=== PATIENT | female | born 1980 | race Caucasian/White ===

== ENCOUNTER 2016-06-22 10:42 | Emergency (ER) | payer OTHER ==
[2016-06-22 11:40] VITALS: BP 134/82
--- NOTE | 2016-06-22 12:44 | UC ---
Headache HPI - HPI Summary HPI Summary: complaint of headache that started 2 days ago when she woke up in the morning stabbing pain in L side of head and radiates into her forehead feels nauseous, vomited 2-3x day for the last 2 days-drinking minimal fluids- denies diarrhea photophobia denies vision changes -aura unable to take metformin for 2 days taking excedrin migraine without relief-last dose of excedrin was yesterday 1300 hx of migraines in the past- last episode 1 month ago, feels worse than her normal migraine-worst headache she has ever had hasn't checked her blood glucose ct scan approx 1 year ago for visual disturbances/headache - History Of Current Complaint Chief Complaint: UCGI Stated Complaint: HEADACHE NAUSEA Time Seen by Provider: 06/22/16 12:38 Hx Obtained From: Patient Hx Last Menstrual Period: First part of May. Onset/Duration: Sudden Onset, Lasting Days, Still Present Onset Of Symptoms: Still Present Initially Headache Was: "Worst Headache Ever" Timing: Constant Character: Sharp Location of Headache: Frontal, Temporal Aggravating Factor: Position Change, Bright Lights Associated Signs And Symptoms: Positive: Dizziness, Nausea, Vomiting - Allergies/Home Medications Allergies/Adverse Reactions: Allergies Allergy/AdvReac Type Severity Reaction Status Date / Time Adhesive Tape Allergy Rash Verified 06/22/16 11:32 Diphenhydramine Allergy Itching Verified 06/22/16 11:32 [From Benadryl] Erythromycin Allergy Hives Verified 06/22/16 11:32 adhesives Allergy Rash Uncoded 06/22/16 11:32 PMH/Surg Hx/FS Hx/Imm Hx Previously Healthy: Yes Endocrine History Of: Reports: Diabetes Cardiovascular History Of: Denies: Hypertension, Pacemaker/ICD Respiratory History Of: Reports: Asthma GI/ History Of: Denies: Renal Disease - Surgical History Surgical History: Yes Surgery Procedure, Year, and Place: R carpal tunnel - Family History Known Family History: Positive: Cardiac Disease, Hypertension, Diabetes - Social History Alcohol Use: None Substance Use Type: None Smoking Status (MU): Former Smoker Type: Cigarettes Amount Used/How Often: 1 PPD Length of Time of Smoking/Using Tobacco: 21 Years Have You Smoked in the Last Year: Yes When Did the Patient Quit Smoking/Using Tobacco: 2007 - Immunization History Most Recent Influenza Vaccination: April 2015 Review of Systems Constitutional: Negative Skin: Negative Eyes: Photophobia ENT: Negative Respiratory: Negative Cardiovascular: Negative Gastrointestinal: Vomiting Genitourinary: Negative Motor: Negative Neurovascular: Negative Musculoskeletal: Negative Neurological: Headache Psychological: Negative All Other Systems Reviewed And Are Negative: Yes Physical Exam Triage Information Reviewed: Yes Appearance: Well-Nourished, Pain Distress, Obese Vital Signs: Initial Vital Signs Temp 98.7 F 06/22/16 11:34 Pulse 96 06/22/16 11:34 Resp 20 06/22/16 11:34 BP 134/82 06/22/16 11:34 Pulse Ox 99 06/22/16 11:34 Vital Signs Reviewed: Yes Eyes: Positive: Conjunctiva Clear, Other: - PERRL, EOMI ENT: Positive: Pharynx normal, TMs normal. Negative: Nasal congestion Neck: Positive: No Lymphadenopathy, Other: - no c-spine tenderness Respiratory: Positive: Lungs clear, Normal breath sounds, No respiratory distress Cardiovascular: Positive: RRR, No Murmur, Pulses Normal Abdomen Description: Positive: Nontender, Soft Bowel Sounds: Positive: Present Musculoskeletal: Positive: No Edema Neurological: Positive: Alert, Other: - CNll-[id number], negative Romberg Psychological Exam: Normal Skin Exam: Normal Re-Evaluation - Re-Evaluation First Eval Re-Evaluation Time: 13:45 Change: Improved - headache pain has lessened 4/10 at this time Headache Course/Dx - Course Course Of Treatment: exam completed. ct scan negative for acute changes. pt pain level has decreased with toradol and is tolerating fluids after zofran. will rx for zofran so she can stay hydrated and use her regular medications for headache pain. followup with PCP - Differential Dx/Diagnosis Differential Diagnosis/HQI/PQRI: Migraine, Subarachnoid Hemorrhage, Tension Headache Provider Diagnoses: migraine Discharge - Discharge Plan Condition: Stable Disposition: HOME Prescriptions: Ondansetron ODT TAB* [Zofran 4 MG Odt TAB*] 4 mg PO Q6H PRN #12 tab.odt PRN Reason: Nausea Patient Education Materials: Migraine Headache (ED), Acute Headache (ED) Forms: *Work Release Referrals: Malka Lopez MD [Primary Care Provider] - Additional Instructions: Start zofran as directed Increase fluids and rest Take acetaminophen or ibuprofen for pain Please review your discharge instructions. If your symptoms do not improve please call your primary care provider or return to urgent care
[2016-06-22] MEDS ORDERED: Ketorolac INJ* 60 MG/2 ML VIAL IM ONE (13:01)
--- NOTE | 2016-06-22 13:41 | RAD ---
HISTORY: Headache COMPARISONS: MRI dated November 03, 2015 TECHNIQUE: Multiple contiguous axial CT scans were obtained of the head without intravenous contrast. FINDINGS: HEMORRHAGE/INFARCT: There is no hemorrhage or acute infarct. MASSES/SHIFT: There is no mass or shift. EXTRA-AXIAL SPACES: There are no extra-axial fluid collections. SULCI AND VENTRICLES: The sulci and ventricles are normal in size and position for the patient's stated age. CEREBRUM: There is a dilated perivascular space of the left basal ganglia. This is an incidental finding. BRAINSTEM: There are no focal parenchymal abnormalities. CEREBELLUM: There are no focal parenchymal abnormalities. VESSELS: The vessels are grossly normal. PARANASAL SINUSES: The paranasal sinuses are clear. ORBITS: The orbits are unremarkable. BONES AND SOFT TISSUE: No bone or soft tissue abnormalities are noted. OTHER: None IMPRESSION: NO ACUTE INTRACRANIAL PATHOLOGY.
[2016-06-22] MEDS ORDERED: Ondansetron ODT TAB* 4 MG PO ONE (13:49)
== END 2016-06-22 14:33 | disposition home or self-care (01) ==
LOC: UCCORT 10:42
DX: G43.909 Migraine, unspecified, not intractable, without status migrainosus (principal); Z88.1 Allergy status to other antibiotic agents; Z87.891 Personal history of nicotine dependence
CPT/HCPCS: 70450; 96372; 99212; A9270-GY; G0463; J1885

== ENCOUNTER 2016-11-02 20:07 | Emergency (ER) | payer OTHER ==
[2016-11-02 20:21] VITALS: BP 132/67
--- NOTE | 2016-11-02 20:54 | UC ---
Throat Pain/Nasal Shahab HPI - HPI Summary HPI Summary: THREE DAYS OF SORE THROAT FEVER, CONGESTION - History of Current Complaint Chief Complaint: UCRespiratory Stated Complaint: SORE THROAT/CONGESTION/HEADACHE Time Seen by Provider: 11/02/16 20:18 Hx Obtained From: Patient, Family/Title Officer Hx Last Menstrual Period: 10/13/16 Onset/Duration: Gradual Onset, Lasting Days, Still Present Severity: Moderate Cough: Nonproductive Associated Signs & Symptoms: Positive: Hoarseness, Fever - Epiglottits Risk Factors Epiglottis Risk Factors: Negative - Allergies/Home Medications Allergies/Adverse Reactions: Allergies Allergy/AdvReac Type Severity Reaction Status Date / Time Adhesive Tape Allergy Rash Verified 11/02/16 20:20 Diphenhydramine Allergy Itching Verified 11/02/16 20:20 [From Benadryl] Erythromycin Allergy Hives Verified 11/02/16 20:20 adhesives Allergy Rash Uncoded 11/02/16 20:20 Home Medications: Home Medications Canagliflozin (NF) [Invokana (NF)] 300 mg PO DAILY 11/02/16 [History Confirmed 11/02/16] Depression Medicine 450 mg DAILY 11/02/16 [History Confirmed 11/02/16] Loratadine [Claritin 10 MG CAP] 10 mg PO DAILY 11/02/16 [History Confirmed 11/02] PMH/Surg Hx/FS Hx/Imm Hx Previously Healthy: Yes - Surgical History Surgical History: Yes Surgery Procedure, Year, and Place: R carpal tunnel - Family History Known Family History: Positive: Cardiac Disease, Hypertension, Diabetes - Social History Occupation: Employed Full-time Lives: With Family Alcohol Use: None Substance Use Type: None Smoking Status (MU): Former Smoker Type: Cigarettes Amount Used/How Often: 1 PPD Length of Time of Smoking/Using Tobacco: 21 Years Have You Smoked in the Last Year: Yes When Did the Patient Quit Smoking/Using Tobacco: 2007 - Immunization History Most Recent Influenza Vaccination: April 2015 Review of Systems Constitutional: Fever, Fatigue Skin: Negative Eyes: Negative ENT: Sore Throat Respiratory: Cough Cardiovascular: Negative Gastrointestinal: Negative Genitourinary: Negative Motor: Negative Neurovascular: Negative Musculoskeletal: Negative Neurological: Negative Psychological: Negative All Other Systems Reviewed And Are Negative: Yes Physical Exam Triage Information Reviewed: Yes Appearance: No Pain Distress, Well-Nourished, Ill-Appearing, Obese Vital Signs: Initial Vital Signs Temp 99.2 F 11/02/16 20:15 Pulse 111 11/02/16 20:15 Resp 18 11/02/16 20:15 BP 132/67 11/02/16 20:15 Pulse Ox 99 11/02/16 20:15 Vital Signs Reviewed: Yes Eye Exam: Normal ENT: Positive: Hearing grossly normal, Pharyngeal erythema, Nasal congestion, TMs normal Dental Exam: Normal Neck exam: Normal Neck: Positive: Supple, Nontender, No Lymphadenopathy Respiratory Exam: Other - COUGH Respiratory: Positive: Chest non-tender, Lungs clear, Normal breath sounds, No respiratory distress, No accessory muscle use Cardiovascular Exam: Normal Cardiovascular: Positive: RRR, No Murmur, Pulses Normal Abdominal Exam: Normal Musculoskeletal Exam: Normal Musculoskeletal: Positive: Strength Intact Neurological Exam: Normal Psychological Exam: Normal Skin Exam: Normal Throat Pain/Nasal Course/Dx - Differential Dx/Diagnosis Differential Diagnosis/HQI/PQRI: Sinusitis, Tonsillitis, URI Provider Diagnoses: TONSILLITIS Discharge - Discharge Plan Condition: Stable Disposition: HOME Patient Education Materials: Tonsillitis (ED) Forms: *Work Release Referrals: Malka Lopez MD [Primary Care Provider] -
== END 2016-11-02 20:54 | disposition home or self-care (01) ==
LOC: UCCORT 20:07
DX: J03.90 Acute tonsillitis, unspecified (principal); E66.9 Obesity, unspecified; Z88.1 Allergy status to other antibiotic agents; Z91.048 Other nonmedicinal substance allergy status; Z87.891 Personal history of nicotine dependence
CPT/HCPCS: 87651; 99211; G0463

== ENCOUNTER 2016-11-06 16:58 | Emergency (ER) | payer OTHER ==
[2016-11-06 17:30] VITALS: BP 119/57
--- NOTE | 2016-11-06 18:01 | UC ---
Ear Complaint HPI - HPI Summary HPI Summary: pain behind right ear--rash in hair behind right ear--feels generally achy - History of Current Complaint Chief Complaint: UCGeneralIllness Stated Complaint: NECK PAIN Time Seen by Provider: 11/06/16 17:50 Hx Obtained From: Patient Hx Last Menstrual Period: 10/13/16 ?: No Onset/Duration: Sudden Onset, Lasting Days - 2, Still Present Severity Initially: Moderate Severity Currently: Moderate Pain Intensity: 7 Pain Scale Used: 0-10 Numeric Aggravating Factors: Nothing Alleviating Factors: Nothing - Allergies/Home Medications Allergies/Adverse Reactions: Allergies Allergy/AdvReac Type Severity Reaction Status Date / Time Adhesive Tape Allergy Rash Verified 11/06/16 17:29 Diphenhydramine Allergy Itching Verified 11/06/16 17:29 [From Benadryl] Erythromycin Allergy Hives Verified 11/06/16 17:29 adhesives Allergy Rash Uncoded 11/06/16 17:29 PMH/Surg Hx/FS Hx/Imm Hx Previously Healthy: No Endocrine History: Diabetes GI/ History: Gastroesophageal Reflux Psychological History: Depression - Surgical History Surgical History: Yes Surgery Procedure, Year, and Place: R carpal tunnel - Family History Known Family History: Positive: Cardiac Disease, Hypertension, Diabetes - Social History Occupation: Employed Full-time Lives: With Family Alcohol Use: None Substance Use Type: None Smoking Status (MU): Former Smoker Type: Cigarettes Amount Used/How Often: 1 PPD Length of Time of Smoking/Using Tobacco: 21 Years Have You Smoked in the Last Year: Yes When Did the Patient Quit Smoking/Using Tobacco: 2007 Cessation Counseling: Counseled 3+Min - 10 Min - Immunization History Most Recent Influenza Vaccination: April 2015 Review of Systems Constitutional: Fatigue Skin: Rash - behind right ear Eyes: Negative ENT: Negative Respiratory: Negative Cardiovascular: Negative Gastrointestinal: Negative Genitourinary: Negative Motor: Negative Neurovascular: Negative Musculoskeletal: Negative Neurological: Negative Psychological: Negative All Other Systems Reviewed And Are Negative: Yes Physical Exam Triage Information Reviewed: Yes Appearance: Well-Appearing, Pain Distress - mild, Obese Vital Signs: Initial Vital Signs Temp 98.7 F 11/06/16 17:25 Pulse 106 11/06/16 17:25 Resp 14 11/06/16 17:25 BP 119/57 11/06/16 17:25 Pulse Ox 98 11/06/16 17:25 Vital Signs Reviewed: Yes Eye Exam: Normal Eyes: Positive: Conjunctiva Clear ENT Exam: Normal ENT: Positive: Normal ENT inspection, Hearing grossly normal, Pharynx normal, TMs normal. Negative: Nasal congestion, Nasal drainage, Tonsillar swelling, Tonsillar exudate, Trismus, Muffled/hoarse voice Dental Exam: Normal Neck exam: Normal Neck: Positive: Supple, Nontender, No Lymphadenopathy Respiratory Exam: Normal Respiratory: Positive: Chest non-tender, Lungs clear, Normal breath sounds, No respiratory distress, No accessory muscle use Cardiovascular Exam: Normal Cardiovascular: Positive: RRR, No Murmur, Pulses Normal, Brisk Capillary Refill Musculoskeletal Exam: Normal Musculoskeletal: Positive: Strength Intact, ROM Intact, No Edema Neurological Exam: Normal Neurological: Positive: Alert, Muscle Tone Normal, Fatigued Psychological Exam: Normal Psychological: Positive: Normal Response To Family, Age Appropriate Behavior Skin: Positive: rashes - red patches no vesicle formation tender to touch Ear Complaint Course/Dx - Course Course Of Treatment: viral culture, pain med, acyclovir follow with pcp - Differential Dx/Diagnosis Differential Diagnosis/HQI/PQRI: Cellulitis, Otitis Externa, Otitis Media, URI, Other - Shingles Provider Diagnoses: Shingles, nicotine dependent Discharge - Discharge Plan Condition: Stable Disposition: HOME Prescriptions: Acetaminop/Codeine 30 MG TAB* [Tylenol/Codeine 30 MG TAB*] 1 - 2 tab PO Q6H PRN #30 tab MDD 8 PRN Reason: pain Acyclovir [Zovirax] 800 mg PO SEE INSTRUCTIONS #70 tab Patient Education Materials: Shingles (ED) Forms: *School Release Referrals: Malka Lopez MD [Primary Care Provider] - 5 Days
[2016-11-06] MEDS ORDERED: Acetaminop/Codeine 30 MG TAB* 1 TAB (300 MG/30 MG) PO ONE (18:03)
[2016-11-08 21:48] LABS: HS/VZ Source RIGHT SIDE OF NECK; Varicella Zoster Result Negative (Negative); Varicella Zoster Source RIGHT SIDE OF NECK
== END 2016-11-06 18:19 | disposition home or self-care (01) ==
LOC: UCCORT 16:58
DX: B02.9 Zoster without complications (principal); E11.9 Type 2 diabetes mellitus without complications; K21.9 Gastro-esophageal reflux disease without esophagitis; F17.210 Nicotine dependence, cigarettes, uncomplicated; F32.9 Major depressive disorder, single episode, unspecified; Z88.3 Allergy status to other anti-infective agents
CPT/HCPCS: 87529; 87798; 99212; A9270-GY; G0463

== ENCOUNTER 2017-04-04 15:09 | Emergency (ER) | payer OTHER ==
[2017-04-04 15:32] VITALS: BP 171/86
--- OUTSIDE RECORDS SUMMARY | 2017-04-04 15:49 | XMS REPORT | Clinical Summary ---
:1980 Author Organization [facility] Address [address] [place] [address] Phone Allergies, Adverse Reactions, Alerts Allergy Name Reaction Description Start Date Severity Status Provider ERYTHROMYCIN BASE Critical Active MICKEY OAKLEY Conditions or Problems Problem Name Problem Onset Status Entry Provider Comment Standard Annotate Code Date Date Description Hypertension 401.9 Active MARTINA ONEILL Unspecified / essential hypertension Asthma, 493.90 2010 MARTINA BOO Asthma, persistent, unspecified mild Diabetes 250.02 Active FRACISCO Diabetes New Dx mellitus, type / EMMY mellitus 01/28 II, KEN OAKLEY without uncontrolled mention of complication, type II or unspecified type, uncontrolled GERD, 530.81 Active MEMO O Esophageal esophagitis, / MONICA, reflux reflux Depression, 296.22 Active MARTINA BOO Major major, depressive moderate disorder, single episode, moderate degree Restless leg 333.94 Active MEMO O Restless legs syndrome / MONICA, syndrome (RLS) BMI 50.0-59.9 Active FRACISCO Body Mass / EMMY Index KEN OAKLEY 50.0-59.9, adult Allergic 477.0 Active FRACISCO Allergic rhinitis, / EMMY rhinitis due seasonal KEN OAKLEY to pollen Migraine 346.10 Active MARTINA BOO Migraine without aura / without aura, without mention of intractable migraine, without mention of status migrainosus Medication List Medication Instructions Start Stop Generic Name NDC Status Provider Patient Date Date Instruction FAMOTIDINE 20 TAKE ONE FAMOTIDINE 99123504 Active MEMO MG ORAL TABLET BY 860 O TABLET MOUTH TWICE MONICA DAILY , METFORMIN HCL TAKE ONE METFORMIN 41173437 Active MARTINA DILL 1000 MG ORAL TABLET BY HCL 705 MD TABLET MOUTH TWICE DAILY BUPROPION HCL TAKE ONE BUPROPION 23960437 Active FRACISCO ER (XL) 300 TABLET BY 04/16 HCL 905 EMMY MG ORAL MOUTH IN THE ROGERS TABLET MORNING PA EXTENDED RELEASE 24 HOUR INVOKANA 100 TAKE ONE CANAGLIFLOZI 19462191 Active MARTINA DILL MG ORAL TABLET BY 04/16 N 030 MD TABLET MOUTH ONCE DAILY VENTOLIN HFA 2 puffs every ALBUTEROL 44713938 Active MARTINA DILL 108 (90 Base) 4 - 6 hours 08/10 SULFATE 220 MD MCG/ACT as needed INHALATION AEROSOL SOLUTION LORATADINE 10 1 by mouth at LORATADINE 52163641 Active MARTINA DILL MG ORAL bedtime 08/10 410 MD TABLET FLUTICASONE 1 spray each FLUTICASONE 73617464 Active MARTINA DILL PROPIONATE 50 nostril twice 08/10 PROPIONATE 099 MD MCG/ACT NASAL daily SUSPENSION BUPROPION HCL Take 1 by BUPROPION 81920585 Active MARTINA DILL 75 MG ORAL mouth once 05/27 HCL 301 MD TABLET daily for 5 days ESCITALOPRAM 1 by mouth ESCITALOPRAM 97649773 Active MARTINA DILL OXALATE 10 MG every day 05/27 OXALATE 101 MD ORAL TABLET ESCITALOPRAM 1 by mouth ESCITALOPRAM 90953111 Active MARTINA DILL OXALATE 20 MG every day 05/27 OXALATE 201 MD ORAL TABLET SUMATRIPTAN 1 by mouth at SUMATRIPTAN 00178639 Active MARTINA DILL SUCCINATE 100 onset of 05/27 SUCCINATE 259 MD MG ORAL migraine, may TABLET repeat X1 in 2 hours as needed BUPROPION HCL 1 by mouth BUPROPION 68833068 Active MARTINA DILL ER (SR) 150 once a day 05/29 HCL 501 MD MG ORAL TABLET EXTENDED RELEASE 12 HOUR Immunizations Vaccine Administration Date Value Standard Description influenza immunization (Flu given influenza virus vaccine, Vax) has been administered unspecified formulation influenza immunization (Flu given influenza virus vaccine, Vax) has been administered unspecified formulation Vital Signs Date Name Value Unit Range Description blood pressure, diastolic 85 mm[Hg] BP zabala blood pressure, systolic 145 mm[Hg] BP sys height E&M 61.50 [in_us] Bdy height pulse rate E&M 89 /min Heart rate respiratory rate E&M 18 /min Resp rate temperature E&M 98.1 [degF] Body temperature weight E&M 262 [lb_av] Weight Measured blood pressure, diastolic, second 82 mm[Hg] BP zabala observation blood pressure, diastolic 82 mm[Hg] BP zabala blood pressure, systolic, second 140 mm[Hg] BP sys observation blood pressure, systolic 140 mm[Hg] BP sys height E&M 61.5 [in_us] Bdy height pulse rate E&M 100 /min Heart rate respiratory rate E&M 21 /min Resp rate temperature E&M 98.9 [degF] Body temperature weight E&M 279 [lb_av] Weight Measured blood pressure, diastolic, second 83 mm[Hg] BP zabala observation blood pressure, diastolic 83 mm[Hg] BP zabala blood pressure, systolic, second 134 mm[Hg] BP sys observation blood pressure, systolic 134 mm[Hg] BP sys height E&M 62 [in_us] Bdy height pulse rate E&M 127 /min Heart rate pulse rate #3 88 Heart rate respiratory rate E&M 20 /min Resp rate temperature E&M 98.6 [degF] Body temperature weight E&M 288 [lb_av] Weight Measured blood pressure, diastolic 82 mm[Hg] BP zabala blood pressure, systolic 129 mm[Hg] BP sys height E&M 62 [in_us] Bdy height pulse rate E&M 118 /min Heart rate respiratory rate E&M 17 /min Resp rate temperature E&M 99 [degF] Body temperature weight E&M 287 [lb_av] Weight Measured Diagnostic Results Date Name Value Unit Range Description Lab Report: Basic Metabolic Panel, Hemoglobin A1c--6.1 - Chemistry sodium, serum 137 mmol/L 468-347 4262/12/11 potassium, serum 3.6 mmol/L 3.5-5.0 chloride, serum 103 mmol/L 357-444 8137/12/11 carbon dioxide, venous blood 27 mmol/L 22-32 anion gap, serum 7 mmol/L 2-11 blood glucose, random 128 mg/dL 70-100 urea nitrogen, blood 14 mg/dL 6-24 creatinine, serum 0.95 mg/dL 0.51-0.95 urea nitrogen/creatinine ratio, serum 14.7 8-20 calcium, serum 9.2 mg/dL 8.6-10.3 Estimated Glomerular Filtration Rate 65.8 (?) mL/min/1.73m2 > 60 (calc) hemoglobin A1C, blood, as % of total 6.1 % 4.0-5.6 hemoglobin Lab Report: Basic Metabolic Panel, Hemoglobin A1c--6.1 - Genetics/fertility eGFR if 84.7 (?) mL/min/1.73m2 >60 Lab Report: COMPREHENSIVE METABOLIC PANEL - Chemistry blood glucose, random 137 mg/dL 74-106 urea nitrogen, blood 11 mg/dL 7-18 creatinine, serum 0.8 mg/dL 0.6-1.3 Estimated Glomerular Filtration >60 mL/min mL/min/1.73m2 > 60 Rate (calc) Glomerular Filtration rate >60 mL/min >60 [place] urea nitrogen/creatinine ratio, 13.7 ratio serum sodium, serum 138 mmol/L 775-412 3562/04/28 potassium, serum 4.5 mmol/L 3.5-5.1 chloride, serum 104 mmol/L 98-107 carbon dioxide, venous blood 26 mmol/L 21-32 anion gap, serum 8 mEq/L 8-16 calcium, serum 8.6 mg/dL 8.5-10.1 protein, total, serum 7.0 g/dL 6.4-8.2 albumin, serum 3.4 g/dL 3.4-5.0 globulins, serum, total 3.6 g/dL 1.9-4.3 albumin/globulin ratio, serum 0.9 ratio aspartate aminotransferase (SGOT), 8 U/L 15-37 serum alanine aminotransferase (SGPT), 23 U/L 12-78 serum magnesium, serum 2.1 mg/dL 1.8-2.4 Lab Report: COMPREHENSIVE METABOLIC PANEL, CK, TROPONIN-I, CBS W/AUTOMAT ... - Chemistry blood glucose, random 131 mg/dL 74-106 urea nitrogen, blood 14 mg/dL 7-18 creatinine, serum 1.2 mg/dL 0.6-1.3 Estimated Glomerular Filtration 53 mL/min/1.73m2 >60 Rate (calc) Glomerular Filtration rate >60 mL/min >60 urea nitrogen/creatinine ratio, 11.6 ratio serum sodium, serum 142 mmol/L 086-110 0508/11/19 potassium, serum 2.9 mmol/L 3.5-5.1 chloride, serum 106 mmol/L 98-107 carbon dioxide, venous blood 23 mmol/L 21-32 anion gap, serum 13 mEq/L 8-16 calcium, serum 9.0 mg/dL 8.5-10.1 protein, total, serum 7.4 g/dL 6.4-8.2 albumin, serum 4.2 g/dL 3.4-5.0 globulins, serum, total 3.2 g/dL 1.9-4.3 albumin/globulin ratio, serum 1.3 ratio bilirubin, serum, total 0.6 mg/dL 0.2-1.0 aspartate aminotransferase 14 U/L 15-37 (SGOT), serum alanine aminotransferase (SGPT), 39 U/L 12-78 serum troponin I < 0.015 ng/mL ng/mL BASOPHILS 0.04 0.0-0.1 Absolute Neutrophil count 6.75 K/UL {Cells}/uL 1.8-7.0 Absolute Lymphocytes 3.71 10*3/uL 1.0-4.0 Lab Report: COMPREHENSIVE METABOLIC PANEL, CK, TROPONIN-I, CBS W/AUTOMAT ... - Hematology Eosinophil Absolute Count 0.24 10*3/uL 0.0-0.5 leukocyte count, blood 11.8 10*3/mm3 3.1-10.7 erythrocyte (RBC) count 5.89 M/UL 10*6/mm3 3.90-5.40 hemoglobin, blood 16.3 g/dL 11.6-15.8 hematocrit, blood 45.7 % 36.0-46.1 mean corpuscular volume, RBC 77.6 fL 80.9-99.0 mean corpuscular hemoglobin, RBC 27.7 pg 25.9-32.7 mean corpuscular hemoglobin concentration, 35.7 G/DL % 30.8- 34.3 RBC platelet count 268 10*3/mm3 476-800 9205/11/19 red blood cell distribution width, size 41.9 fL 3-47 density mean platelet volume 9.2 fL 8.9-12.4 neutrophils as percent of blood leukocytes 57.5 % 40.4-72.8 lymphocytes as percent of blood leukocytes 31.5 % 20.0-42.0 monocytes as percent of blood leukocytes 8.7 % 4.3-13.2 eosinophils as percent of blood leukocytes 2.0 % 0.0-6.6 basophils as percent of blood leukocytes 0.3 % 0.0-1.1 Lab Report: GLYCOHEMOGLOBIN A1C - Chemistry hemoglobin A1C, blood, as % of total hemoglobin 6.7 % 4.2-6.3 Estimated Average Glucose 146 mg/dL Lab Report: TISSUE CULTURE W/ GRAM STAIN - Lab Aerobic culture NO GROWTH: FINAL REPORT Lab Report: TISSUE CULTURE W/ GRAM STAIN - Microbiology gram stain NO WHITE BLOOD CELLS Occupational Health: [place]: [employer] [employer] [place] - Urinalysis urine color yellow appearance, urine clear leukocyte esterase, urine, by dipstick negative nitrite, urine, semiquantitative negative urobilinogen, urine, semiquantitative (dipstick) negative blood in urine (hemoglobin) by dipstick negative ketones, urine, by test strip trace (5) bilirubin, urine negative glucose, urine, semiquantitative trace pH, urine, semiquantitative 5.0 specific gravity, urine 1.020 Encounters Code Encounter Date Provider Facility CPT-68611 Ofc Vst, Est Level IV MARTINA BOO MD [facility] 12:55:17 EST CPT-22760 Ofc Vst, Est Level IV MEMO Whitlock [facility] 21:42:07 EDT MD MONICA CPT-07689 Ofc Vst, Est Level IV FRACISCO ROGERS [facility] 18:00:10 EDT CELE CPT-11305 Ofc Vst, Est Level IV [facility] Office 15:10:49 EDT MD MONIAC CPT-86168 Ofc Vst, Est Level IV [facility] Office 22:14:24 EDT MD MONICA CPT-48676 Ofc Vst, Est Level III FRACISCO ROGERS [facility] 11:26:46 EDT PA CPT-79161 Ofc Vst, Est Level III FRACISCO ROGERS [facility] 12:10:18 EST PA CPT-55663 Ofc Vst, Est Level III MADDIE MURDOCK [facility] Office 11:26:16 EST CPT-22084 Ofc Vst, New Level II MICKEY MILNER [facility] Office 14:33:12 EST Procedures Code Procedure Name Date Entry Date Standard Description CPT-47555 Influenza 3 yrs. & up 12:55:17 EST CPT-OHVIS [facility] [place] 14:45:59 EST CPT-OHCOLOR Color Vision [place] 14:45:59 EST CPT-OHAUDIO Audiometry [place] 14:45:59 EST CPT-OHUA Urine Dip - [place] 14:45:59 EST CPT-OHPE [place] 14:45:59 EST CPT-OHVIS [facility] [place] 09:18:23 EDT CPT-OHCOLOR Color Vision [place] 09:18:22 EDT CPT-OHAUDIO Audiometry [place] 09:18:22 EDT CPT-OHUA Urine Dip - [place] 09:18:22 EDT CPT-OHPEDOT DOT PE 09:18:22 EDT CPT-05914 Influenza 3 yrs. & up 15:09:56 EDT CPT-91040 Venipuncture 22:14:25 EDT CPT-OHPEDOT DOT PE 09:21:57 EST CPT-12661 Glucose - In House 14:36:14 EDT CPT-OHVIS [facility] [place] 14:36:14 EDT CPT-OHCOLOR Color Vision [place] 14:36:13 EDT CPT-OHUA Urine Dip - [place] 14:36:13 EDT CPT-OHPEDOT DOT PE 14:36:13 EDT CPT-48888 Urine Preg Test - In [place] 11:26:16 EDT CPT-43868 Urine Preg Test - In [place] 09:17:28 EDT CPT-48661 Urine Preg Test - In House 11:23:16 EDT CPT-88069 Urine Dip - In House 11:24:55 EDT CPT-43251 Urine Dip 14:36:42 EST CPT-00026 Urine Preg Test 14:32:42 EST
--- OUTSIDE RECORDS SUMMARY | 2017-04-04 15:49 | XMS REPORT | Clinical Summary ---
:1980 Author Organization [facility] Address [address] [place] [address] Phone Allergies, Adverse Reactions, Alerts Allergy Name Reaction Description Start Date Severity Status Provider ERYTHROMYCIN BASE Critical Active MICKEY OAKLEY Conditions or Problems Problem Name Problem Onset Status Entry Provider Comment Standard Annotate Code Date Date Description Hypertension 401.9 Active MARTINA BOO Unspecified / essential hypertension Asthma, 493.90 2010 MARTINA BOO Asthma, persistent, unspecified mild Diabetes 250.02 Active FRACISCO Diabetes New Dx mellitus, type / EMMY mellitus 01/28 II, KEN OAKLEY without uncontrolled mention of complication, type II or unspecified type, uncontrolled GERD, 530.81 Active MEMO O Esophageal esophagitis, MONICA, reflux reflux Depression, 296.22 Active MARTINA BOO Major major, depressive moderate disorder, single episode, moderate degree Restless leg 333.94 Active MEMO O Restless legs syndrome MONICA, syndrome (RLS) BMI 50.0-59.9 Active FRACISCO Body Mass / EMMY Index KEN PA 50.0-59.9, adult Allergic 477.0 Active FRACISCO Allergic rhinitis, EMMY rhinitis due seasonal KEN OAKLEY to pollen Immunization V05.9 Active MARTINA BOO Need for / prophylactic vaccination and inoculation against unspecified single disease Migraine 346.10 Active MARTINA BOO Migraine without aura without aura, without mention of intractable migraine, without mention of status migrainosus Medication List Medication Instructions Start Stop Generic Name NDC Status Provider Patient Date Date Instruction FAMOTIDINE 20 TAKE ONE FAMOTIDINE 46936494 Active MEMO MG ORAL TABLET BY 860 O TABLET MOUTH TWICE MONICA DAILY , METFORMIN HCL TAKE ONE METFORMIN 99506680 Active MARTINA DILL 1000 MG ORAL TABLET BY HCL 705 MD TABLET MOUTH TWICE DAILY BUPROPION HCL TAKE ONE BUPROPION 15789305 Active FRACISCO ER (XL) 300 TABLET BY 04/16 HCL 905 EMMY MG ORAL MOUTH IN THE ROGERS TABLET MORNING PA EXTENDED RELEASE 24 HOUR INVOKANA 100 TAKE ONE CANAGLIFLOZI 55819868 Active MARTINA DILL MG ORAL TABLET BY 04/16 N 030 MD TABLET MOUTH ONCE DAILY VENTOLIN HFA 2 puffs every ALBUTEROL 48369528 Active MARTINA DILL 108 (90 Base) 4 - 6 hours 08/10 SULFATE 220 MD MCG/ACT as needed INHALATION AEROSOL SOLUTION LORATADINE 10 1 by mouth at LORATADINE 11800590 Active MARTINA DILL MG ORAL bedtime 08/10 410 MD TABLET FLUTICASONE 1 spray each FLUTICASONE 40761470 Active MARTINA DILL PROPIONATE 50 nostril twice 08/10 PROPIONATE 099 MD MCG/ACT NASAL daily SUSPENSION BUPROPION HCL Take 1 by BUPROPION 79186152 Active MARTINA DILL 75 MG ORAL mouth once 05/27 HCL 301 MD TABLET daily for 5 days ESCITALOPRAM 1 by mouth ESCITALOPRAM 78430808 Active MARTINA DILL OXALATE 10 MG every day 05/27 OXALATE 101 MD ORAL TABLET ESCITALOPRAM 1 by mouth ESCITALOPRAM 98891408 Active MARTINA DILL OXALATE 20 MG every day 05/27 OXALATE 201 MD ORAL TABLET SUMATRIPTAN 1 by mouth at SUMATRIPTAN 18967830 Active MARTINA DILL SUCCINATE 100 onset of 05/27 SUCCINATE 259 MD MG ORAL migraine, may TABLET repeat X1 in 2 hours as needed BUPROPION HCL 1 by mouth BUPROPION 04423907 Active MARTINA DILL ER (SR) 150 once [...] A1c--6.1 - Chemistry sodium, serum 137 mmol/L 269-568 1163/12/11 potassium, serum 3.6 mmol/L 3.5-5.0 chloride, serum 103 mmol/L 625-149 4439/12/11 carbon dioxide, venous blood 27 mmol/L 22-32 [...] Lab Report: COMPREHENSIVE METABOLIC PANEL - Chemistry Glomerular Filtration rate >60 mL/min >60 Mal[place] Estimated Glomerular Filtration >60 mL/min mL/min/1.73m2 > 60 Rate (calc) creatinine, serum 0.8 mg/dL 0.6-1.3 urea nitrogen, blood 11 mg/dL 7-18 blood glucose, random 137 mg/dL 74-106 urea nitrogen/creatinine ratio, 13.7 ratio serum sodium, serum 138 mmol/L 272-267 4685/04/28 potassium, serum 4.5 mmol/L 3.5-5.1 chloride, serum [...] CK, TROPONIN-I, CBS W/AUTOMAT ... - Chemistry Absolute Neutrophil count 6.75 K/UL {Cells}/uL 1.8-7.0 Absolute Lymphocytes 3.71 10*3/uL 1.0-4.0 urea nitrogen, blood 14 mg/dL 7-18 creatinine, serum 1.2 mg/dL 0.6-1.3 Estimated Glomerular Filtration 53 mL/min/1.73m2 >60 Rate (calc) Glomerular Filtration rate >60 mL/min >60 blood glucose, random 131 mg/dL 74-106 urea nitrogen/creatinine ratio, 11.6 ratio serum sodium, serum 142 mmol/L 091-773 1865/11/19 potassium, serum 2.9 mmol/L 3.5-5.1 chloride, serum [...] < 0.015 ng/mL ng/mL BASOPHILS 0.04 0.0-0.1 Lab Report: COMPREHENSIVE METABOLIC PANEL, CK, TROPONIN-I, CBS W/AUTOMAT ... - Hematology leukocyte count, blood 11.8 10*3/mm3 3.1-10.7 erythrocyte (RBC) count 5.89 M/UL 10*6/mm3 3.90-5.40 hemoglobin, blood 16.3 g/dL 11.6-15.8 hematocrit, blood 45.7 % 36.0-46.1 mean corpuscular volume, RBC 77.6 fL 80.9-99.0 mean corpuscular hemoglobin, RBC 27.7 pg 25.9-32.7 mean corpuscular hemoglobin concentration, 35.7 G/DL % 30.8- 34.3 RBC platelet count 268 10*3/mm3 328-479 5546/11/19 red blood cell distribution width, size 41.9 fL 3-47 density mean platelet volume 9.2 fL 8.9-12.4 neutrophils as percent of blood leukocytes 57.5 % 40.4-72.8 lymphocytes as percent of blood leukocytes 31.5 % 20.0-42.0 monocytes as percent of blood leukocytes 8.7 % 4.3-13.2 eosinophils as percent of blood leukocytes 2.0 % 0.0-6.6 basophils as percent of blood leukocytes 0.3 % 0.0-1.1 Eosinophil Absolute Count 0.24 10*3/uL 0.0-0.5 Lab Report: GLYCOHEMOGLOBIN A1C - Chemistry hemoglobin A1C, blood, as % of total hemoglobin 6.7 % 4.2-6.3 Estimated Average Glucose 146 mg/dL Lab Report: TISSUE CULTURE W/ GRAM STAIN - Lab Aerobic culture NO GROWTH: FINAL REPORT Lab Report: TISSUE CULTURE W/ GRAM STAIN - Microbiology gram stain NO WHITE BLOOD CELLS Occupational Health: [place]: [employer] [employer] [place] - Urinalysis urine color yellow appearance, urine clear leukocyte esterase, urine, by dipstick negative nitrite, urine, semiquantitative negative urobilinogen, urine, semiquantitative (dipstick) negative blood in urine (hemoglobin) by dipstick negative ketones, urine, by test strip trace (5) bilirubin, urine negative glucose, urine, semiquantitative trace pH, urine, semiquantitative 5.0 specific gravity, urine 1.020 Encounters Code Encounter Date Provider Facility CPT-97245 Ofc Vst, Est Level IV MARTINA BOO MD [facility] 12:55:17 EST CPT-09952 Ofc Vst, Est Level IV MEMO [facility] Office 21:42:07 EDT MD MONICA CPT-33514 Ofc Vst, Est Level IV FRACISCO ROGERS [facility] 18:00:10 EDT PA CPT-54814 Ofc Vst, Est Level IV [facility] Office 15:10:49 EDT MD MONICA CPT-46979 Ofc Vst, Est Level IV [facility] Office 22:14:24 EDT MD MONICA CPT-00199 Ofc Vst, Est Level III FRACISCO ROGERS [facility] 11:26:46 EDT PA CPT-13552 Ofc Vst, Est Level III FRACISCO ROGERS [facility] 12:10:18 EST PA CPT-19209 Ofc Vst, Est Level III MADDIE MURDOCK [facility] Office 11:26:16 EST CPT-46054 Ofc Vst, New Level II MICKYE OAKLEY [facility] 14:33:12 EST Procedures Code Procedure Name Date Entry Date Standard Description CPT-56074 Influenza 3 yrs. & up 12:55:17 EST [...] 09:18:22 EDT CPT-OHPEDOT DOT [place] 09:18:22 EDT CPT-25798 Influenza 3 yrs. & up 15:09:56 EDT CPT-87893 Venipuncture 22:14:25 EDT CPT-OHPEDOT DOT PE 09:21:57 EST CPT-16711 Glucose - In House 14:36:14 EDT CPT-OHVIS Vision [place] 14:36:14 EDT CPT-OHCOLOR Color Vision [place] 14:36:13 EDT CPT-OHUA Urine Dip - [place] 14:36:13 EDT CPT-OHPEDOT DOT PE 14:36:13 EDT CPT-76756 Urine Preg Test - In [place] 11:26:16 EDT CPT-27018 Urine Preg Test - In [place] 09:17:28 EDT CPT-13586 Urine Preg Test - In [place] 11:23:16 EDT CPT-79417 Urine Dip - In House 11:24:55 EDT CPT-31955 Urine Dip 14:36:42 EST CPT-77732 Urine Preg Test 14:32:42 EST
--- OUTSIDE RECORDS SUMMARY | 2017-04-04 15:50 | XMS REPORT | Clinical Summary ---
:1980 Author Organization [facility] Address [address] [place] [address] Phone Allergies, Adverse Reactions, Alerts Allergy Name [...] Allergic rhinitis, EMMY rhinitis due seasonal KEN OALKEY to pollen Immunization V05.9 Active MARTINA BOO Need for / prophylactic vaccination and inoculation against unspecified single disease Migraine 346.10 Active MARTINA BOO Migraine without aura without aura, without mention of intractable migraine, without mention of status migrainosus Medication List Medication Instructions Start Stop Generic Name NDC Status Provider Patient Date Date Instruction FAMOTIDINE 20 TAKE ONE FAMOTIDINE 98137059 Active MEMO MG ORAL TABLET BY 860 O TABLET MOUTH TWICE MONICA DAILY , METFORMIN HCL TAKE ONE METFORMIN 59493108 Active MARTINA DILL 1000 MG ORAL TABLET BY HCL 705 MD TABLET MOUTH TWICE DAILY BUPROPION HCL TAKE ONE BUPROPION 62042303 Active FRACISCO ER (XL) 300 TABLET BY 04/16 HCL 905 EMMY MG ORAL MOUTH IN THE ROGERS TABLET MORNING PA EXTENDED RELEASE 24 HOUR INVOKANA 100 TAKE ONE CANAGLIFLOZI 25552091 Active MARTINA DILL MG ORAL TABLET BY 04/16 N 030 MD TABLET MOUTH ONCE DAILY VENTOLIN HFA 2 puffs every ALBUTEROL 61501025 Active MARTINA DILL 108 (90 Base) 4 - 6 hours 08/10 SULFATE 220 MD MCG/ACT as needed INHALATION AEROSOL SOLUTION LORATADINE 10 1 by mouth at LORATADINE 51993772 Active MARTINA DILL MG ORAL bedtime 08/10 410 MD TABLET FLUTICASONE 1 spray each FLUTICASONE 74291780 Active MARTINA DILL PROPIONATE 50 nostril twice 08/10 PROPIONATE 099 MD MCG/ACT NASAL daily SUSPENSION BUPROPION HCL Take 1 by BUPROPION 84553129 Active MARTINA DILL 75 MG ORAL mouth once 05/27 HCL 301 MD TABLET daily for 5 days ESCITALOPRAM 1 by mouth ESCITALOPRAM 49435010 Active MARTINA DILL OXALATE 10 MG every day 05/27 OXALATE 101 MD ORAL TABLET ESCITALOPRAM 1 by mouth ESCITALOPRAM 64213125 Active MARTINA DILL OXALATE 20 MG every day 05/27 OXALATE 201 MD ORAL TABLET SUMATRIPTAN 1 by mouth at SUMATRIPTAN 20570718 Active MARTINA DILL SUCCINATE 100 onset of 05/27 SUCCINATE 259 MD MG ORAL migraine, may TABLET repeat X1 in 2 hours as needed Immunizations Vaccine Administration Date Value Standard Description [...] Name Value Unit Range Description Lab Report: COMPREHENSIVE METABOLIC PANEL - Chemistry blood glucose, random 137 mg/dL 74-106 urea nitrogen, blood 11 mg/dL 7-18 creatinine, serum 0.8 mg/dL 0.6-1.3 Estimated Glomerular Filtration >60 mL/min mL/min/1.73m2 > 60 Rate (calc) Glomerular Filtration rate >60 mL/min >60 Sudanese urea nitrogen/creatinine ratio, 13.7 ratio serum sodium, serum 138 mmol/L 103-658 0218/04/28 potassium, serum 4.5 mmol/L 3.5-5.1 chloride, serum [...] {Cells}/uL 1.8-7.0 Absolute Lymphocytes 3.71 10*3/uL 1.0-4.0 BASOPHILS 0.04 0.0-0.1 blood glucose, random 131 mg/dL 74-106 urea nitrogen, blood 14 mg/dL 7-18 creatinine, serum 1.2 mg/dL 0.6-1.3 Estimated Glomerular Filtration 53 mL/min/1.73m2 >60 Rate (calc) Glomerular Filtration rate >60 mL/min >60 urea nitrogen/creatinine ratio, 11.6 ratio serum sodium, serum 142 mmol/L 664-497 5998/11/19 potassium, serum 2.9 mmol/L 3.5-5.1 chloride, serum [...] serum troponin I < 0.015 ng/mL ng/mL Lab Report: COMPREHENSIVE METABOLIC PANEL, CK, TROPONIN-I, CBS W/AUTOMAT ... - Hematology leukocyte count, blood 11.8 10*3/mm3 3.1-10.7 erythrocyte (RBC) count 5.89 M/UL 10*6/mm3 3.90-5.40 hemoglobin, blood 16.3 g/dL 11.6-15.8 hematocrit, blood 45.7 % 36.0-46.1 mean corpuscular volume, RBC 77.6 fL 80.9-99.0 mean corpuscular hemoglobin, RBC 27.7 pg 25.9-32.7 mean corpuscular hemoglobin concentration, 35.7 G/DL % 30.8- 34.3 RBC platelet count 268 10*3/mm3 942-700 9019/11/19 red blood cell distribution width, size 41.9 [...] NO WHITE BLOOD CELLS Occupational Health: [place]: [employer] [place] - Urinalysis urine color yellow appearance, urine clear leukocyte esterase, urine, by dipstick negative nitrite, urine, semiquantitative negative urobilinogen, urine, semiquantitative (dipstick) negative blood in urine (hemoglobin) by dipstick negative ketones, urine, by test strip trace (5) bilirubin, urine negative glucose, urine, semiquantitative trace pH, urine, semiquantitative 5.0 specific gravity, urine 1.020 Encounters Code Encounter Date Provider Facility CPT-33708 Ofc Vst, Est Level IV MARTINA BOO MD [facility] 12:55:17 EST CPT-05801 Ofc Vst, Est Level IV [facility] Office 21:42:07 EDT MD MONICA CPT-91574 Ofc Vst, Est Level IV FRACISCO ROGERS [facility] 18:00:10 EDT CELE CPT-90947 Ofc Vst, Est Level IV [facility] Office 15:10:49 EDT MD MONICA CPT-02616 Ofc Vst, Est Level IV [facility] Office 22:14:24 EDT MD MONICA CPT-24872 Ofc Vst, Est Level III FRACISCO ROGERS [facility] 11:26:46 EDT CELE CPT-58484 Ofc Vst, Est Level III FRACISCO ROGERS [facility] 12:10:18 EST CELE CPT-12026 Ofc Vst, Est Level III MADDIE MURDOCK NP [facility] 11:26:16 EST CPT-93071 Ofc Vst, New Level II MICKEY OAKLEY [facility] 14:33:12 EST Procedures Code Procedure Name Date Entry Date Standard Description CPT-08225 Influenza 3 yrs. & up 12:55:17 EST [...] 09:18:22 EDT CPT-[facility] [place] 09:18:22 EDT CPT-61892 Influenza 3 yrs. & up 15:09:56 EDT CPT-88911 Venipuncture 22:14:25 EDT CPT-[place] 09:21:57 EST CPT-81310 Glucose - In House 14:36:14 EDT CPT-OHVIS [facility] [place] 14:36:14 EDT CPT-OHCOLOR Color [facility] [place] 14:36:13 EDT CPT-OHUA Urine Dip - [place] 14:36:13 EDT CPT-[place] 14:36:13 EDT CPT-75646 Urine Preg Test - In House 11:26:16 EDT CPT-41743 Urine Preg Test - In House 09:17:28 EDT CPT-05209 Urine Preg Test - In House 11:23:16 EDT CPT-37419 Urine Dip - In House 11:24:55 EDT CPT-43822 Urine Dip 14:36:42 EST CPT-01472 Urine Preg Test 14:32:42 EST
--- OUTSIDE RECORDS SUMMARY | 2017-04-04 15:50 | XMS REPORT | Clinical Summary ---
:1980 Author Organization [facility] Address [address] [place] [address] Phone Allergies, Adverse Reactions, Alerts Allergy Name [...] Date Instruction FAMOTIDINE 20 TAKE ONE FAMOTIDINE 03228266 Active MEMO MG ORAL TABLET BY 860 O TABLET MOUTH TWICE MONICA DAILY , METFORMIN HCL TAKE ONE METFORMIN 35926661 Active MARTINA DILL 1000 MG ORAL TABLET BY HCL 705 MD TABLET MOUTH TWICE DAILY BUPROPION HCL TAKE ONE BUPROPION 73722279 Active FRACISCO ER (XL) 300 TABLET BY 04/16 HCL 905 EMMY MG ORAL MOUTH IN THE ROGERS TABLET MORNING PA EXTENDED RELEASE 24 HOUR INVOKANA 100 TAKE ONE CANAGLIFLOZI 75166756 Active MARTINA DILL MG ORAL TABLET BY 04/16 N 030 MD TABLET MOUTH ONCE DAILY VENTOLIN HFA 2 puffs every ALBUTEROL 37220693 Active MARTINA DILL 108 (90 Base) 4 - 6 hours 08/10 SULFATE 220 MD MCG/ACT as needed INHALATION AEROSOL SOLUTION LORATADINE 10 1 by mouth at LORATADINE 94825634 Active MARTINA DILL MG ORAL bedtime 08/10 410 MD TABLET FLUTICASONE 1 spray each FLUTICASONE 94864605 Active MARTINA DILL PROPIONATE 50 nostril twice 08/10 PROPIONATE 099 MD MCG/ACT NASAL daily SUSPENSION BUPROPION HCL Take 1 by BUPROPION 43928669 Active MARTINA DILL 75 MG ORAL mouth once 05/27 HCL 301 MD TABLET daily for 5 days ESCITALOPRAM 1 by mouth ESCITALOPRAM 05487800 Active MARTINA DILL OXALATE 10 MG every day 05/27 OXALATE 101 MD ORAL TABLET ESCITALOPRAM 1 by mouth ESCITALOPRAM 61533687 Active MARTINA DILL OXALATE 20 MG every day 05/27 OXALATE 201 MD ORAL TABLET SUMATRIPTAN 1 by mouth at SUMATRIPTAN 64080180 Active MARTINA DILL SUCCINATE 100 onset of [...] A1c--6.1 - Chemistry sodium, serum 137 mmol/L 471-838 2968/12/11 potassium, serum 3.6 mmol/L 3.5-5.0 chloride, serum 103 mmol/L 892-550 6274/12/11 carbon dioxide, venous blood 27 mmol/L 22-32 [...] (calc) Glomerular Filtration rate >60 mL/min >60 Lao urea nitrogen/creatinine ratio, 13.7 ratio serum sodium, serum 138 mmol/L 322-495 3130/04/28 potassium, serum 4.5 mmol/L 3.5-5.1 chloride, serum [...] 11.6 ratio serum sodium, serum 142 mmol/L 825-560 4442/11/19 potassium, serum 2.9 mmol/L 3.5-5.1 chloride, serum [...] 30.8- 34.3 RBC platelet count 268 10*3/mm3 041-165 3936/11/19 red blood cell distribution width, size 41.9 [...] NO WHITE BLOOD CELLS Occupational Health: [place]: [employer] [employer] [place] - Urinalysis urine color yellow appearance, urine clear leukocyte esterase, urine, by dipstick negative nitrite, urine, semiquantitative negative urobilinogen, urine, semiquantitative (dipstick) negative blood in urine (hemoglobin) by dipstick negative ketones, urine, by test strip trace (5) bilirubin, urine negative glucose, urine, semiquantitative trace pH, urine, semiquantitative 5.0 specific gravity, urine 1.020 Encounters Code Encounter Date Provider Facility CPT-06684 Ofc Vst, Est Level IV MARTINA BOO MD [facility] 12:55:17 EST CPT-21263 Ofc Vst, Est Level IV [facility] Office 21:42:07 EDT MD MONICA CPT-99588 Ofc Vst, Est Level IV FRACISCO ROGERS [facility] 18:00:10 EDT CELE CPT-22282 Ofc Vst, Est Level IV [facility] Office 15:10:49 EDT MD MONICA CPT-86621 Ofc Vst, Est Level IV [facility] Office 22:14:24 EDT MD MONICA CPT-05201 Ofc Vst, Est Level III FRACISCO ROGERS [facility] 11:26:46 EDT PA CPT-72191 Ofc Vst, Est Level III FRACISCO BOOTH ROGERS [facility] 12:10:18 EST PA CPT-40160 Ofc Vst, Est Level III MADDIE MURDOCK [facility] Office 11:26:16 EST CPT-66422 Ofc Vst, New Level II MICKEY MILNER [facility] Office 14:33:12 EST Procedures Code Procedure Name Date Entry Date Standard Description CPT-64302 Influenza 3 yrs. & up 12:55:17 EST [...] 09:18:22 EDT CPT-[facility] [facility] [place] 09:18:22 EDT CPT-49236 Influenza 3 yrs. & up 15:09:56 EDT CPT-51602 Venipuncture 22:14:25 EDT CPT-[place] 09:21:57 EST CPT-67856 Glucose - In House 14:36:14 EDT CPT-OHVIS [facility] [place] 14:36:14 EDT CPT-OHCOLOR [facility] [place] 14:36:13 EDT CPT-OHUA Urine Dip - [place] 14:36:13 EDT CPT-[place] 14:36:13 EDT CPT-85128 Urine Preg Test - In [place] 11:26:16 EDT CPT-05186 Urine Preg Test - In [place] 09:17:28 EDT CPT-22134 Urine Preg Test - In [place] 11:23:16 EDT CPT-81066 Urine Dip - In House 11:24:55 EDT CPT-25957 Urine Dip 14:36:42 EST CPT-62111 Urine Preg Test 14:32:42 EST
--- OUTSIDE RECORDS SUMMARY | 2017-04-04 15:51 | XMS REPORT | Clinical Summary ---
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0-59.9 Active FRACISCO Body Mass /04/18 EMMY Index ROGERS 50.0-59.9, PA adult Former smoker, V15.82 Active FRACISCO Personal was 1.5 quit >1 yr 08/10 EMMY history of ppd ROGERS tobacco use smoker PA Allergic 477.0 Active FRACISCO Allergic rhinitis, 08/10 EMMY rhinitis due seasonal ROGERS to pollen PA Axillary 785.6 Active MEMO Enlargement lymphadenopathy /29 O of lymph MONICA nodes MD Medication List Medication Instructions Start Stop Generic Name NDC Status Provider Patient Date Date Instruction FAMOTIDINE TAKE ONE FAMOTIDINE 64843929 Active MEMO 20 MG ORAL TABLET BY 860 O TABLET MOUTH TWICE OLAREWARENETTA DAILY MD METFORMIN TAKE ONE METFORMIN HCL 18162617 Active MEMO HCL 1000 MG TABLET BY 705 O ORAL TABLET MOUTH TWICE OLAREWAJU DAILY , BUPROPION TAKE ONE BUPROPION HCL 85644769 Active FRACISCO HCL ER (XL) TABLET BY 04/16 905 EMYM 300 MG ORAL MOUTH IN THE ROGERS TABLET MORNING PA EXTENDED RELEASE 24 HOUR INVOKANA 100 TAKE ONE CANAGLIFLOZIN 54154552 Active MEMO MG ORAL TABLET BY 04/16 030 O TABLET MOUTH ONCE OLAREWAJU DAILY , VENTOLIN HFA 2 puffs every ALBUTEROL 76881373 Active FRACISCO 108 (90 4 - 6 hours 08/10 SULFATE 220 EMMY Base) as needed ROGERS MCG/ACT PA INHALATION AEROSOL SOLUTION LORATADINE 1 by mouth at LORATADINE 44532264 Active MEMO 10 MG ORAL bedtime 08/10 410 O TABLET MD MONICA FLUTICASONE 1 spray each FLUTICASONE 93743332 Active MEMO PROPIONATE nostril twice 08/10 PROPIONATE 099 O 50 MCG/ACT daily MONICA NASAL MD SUSPENSION BUPROPION 1 tab by BUPROPION HCL 64192242 Active MEMO HCL ER (XL) mouth once 09/12 108 O 150 MG ORAL daily in OLAREWAJU TABLET addiition MD ben EXTENDED 300mg RELEASE 24 tablets. HOUR Immunizations Vaccine Administration Date Value Standard Description influenza immunization (Flu given influenza virus vaccine, Vax) has been administered unspecified formulation Vital Signs Date Name Value Unit Range Description blood pressure, diastolic, second 82 mm[Hg] BP [...] Lab Report: COMPREHENSIVE METABOLIC PANEL - Chemistry urea nitrogen/creatinine ratio, 13.7 ratio serum sodium, serum 138 mmol/L 556-533 1148/04/28 potassium, serum 4.5 mmol/L 3.5-5.1 chloride, serum [...] 12-78 serum magnesium, serum 2.1 mg/dL 1.8-2.4 Glomerular Filtration rate >60 mL/min >60 Australian Estimated Glomerular Filtration >60 mL/min mL/min/1.73m2 > 60 Rate (calc) creatinine, serum 0.8 mg/dL 0.6-1.3 urea nitrogen, blood 11 mg/dL 7-18 blood glucose, random 137 mg/dL 74-106 Lab Report: COMPREHENSIVE METABOLIC PANEL, CK, TROPONIN-I, [...] 11.6 ratio serum sodium, serum 142 mmol/L 790-546 6163/11/19 potassium, serum 2.9 mmol/L 3.5-5.1 chloride, serum [...] Hematology leukocyte count, blood 11.8 10*3/mm3 3.1-10.7 Eosinophil Absolute Count 0.24 10*3/uL 0.0-0.5 erythrocyte (RBC) count 5.89 M/UL 10*6/mm3 3.90-5.40 hemoglobin, blood 16.3 g/dL 11.6-15.8 hematocrit, blood 45.7 % 36.0-46.1 mean corpuscular volume, RBC 77.6 fL 80.9-99.0 mean corpuscular hemoglobin, RBC 27.7 pg 25.9-32.7 mean corpuscular hemoglobin concentration, 35.7 G/DL % 30.8- 34.3 RBC platelet count 268 10*3/mm3 974-796 6474/11/19 red blood cell distribution width, size 41.9 [...] NO WHITE BLOOD CELLS Occupational Health: [place]: [employer] [employer] [place] - Urinalysis urine color yellow appearance, urine clear leukocyte esterase, urine, by dipstick negative nitrite, urine, semiquantitative negative urobilinogen, urine, semiquantitative (dipstick) negative blood in urine (hemoglobin) by dipstick negative ketones, urine, by test strip trace (5) bilirubin, urine negative glucose, urine, semiquantitative trace pH, urine, semiquantitative 5.0 specific gravity, urine 1.020 Encounters Code Encounter Date Provider Facility CPT-17063 Ofc Vst, Est Level IV [facility] Office 21:42:07 EDT MD MONICA CPT-52173 Ofc Vst, Est Level IV FRACISCO ROGERS [facility] 18:00:10 EDT CELE CPT-27012 Ofc Vst, Est Level IV [facility] Office 15:10:49 EDT MD MONICA CPT-23047 [facility] EDT MD MONICA CPT-56608 Ofc Vst, Est Level III FRACISCO ROGERS [facility] 11:26:46 EDT PA CPT-74248 Ofc Vst, Est Level III FRACISCO ROGERS [facility] 12:10:18 EST PA CPT-33948 Ofc Vst, Est Level III MADDIE MURDOCK [facility] Office 11:26:16 EST CPT-40100 Ofc Vst, New Level II MICKEY MILNER PA [facility] 14:33:12 EST Procedures Code Procedure Name Date Entry Date Standard Description CPT-OHVIS [facility] [place] 14:45:59 EST CPT-OHCOLOR Color [facility] [place] 14:45:59 EST CPT-OHAUDIO Audiometry - [place] 14:45:59 EST CPT-OHUA Urine Dip - [place] 14:45:59 EST CPT-OHPE [place] 14:45:59 EST CPT-OHVIS [facility] [place] 09:18:23 EDT CPT-OHCOLOR Color [facility] [place] 09:18:22 EDT CPT-OHAUDIO Audiometry [place] 09:18:22 EDT CPT-OHUA Urine Dip - [place] 09:18:22 EDT CPT-OHPEDOT DOT [place] 09:18:22 EDT CPT-98889 Influenza 3 yrs. & up 15:09:56 EDT CPT-77476 Venipuncture 22:14:25 EDT CPT-OHPEDOT DOT [place] 09:21:57 EST CPT-29135 Glucose - In House 14:36:14 EDT CPT-OHVIS [facility] [place] 14:36:14 EDT CPT-OHCOLOR [facility] [place] 14:36:13 EDT CPT-OHUA Urine Dip - [place] 14:36:13 EDT CPT-OHPEDOT DOT [place] 14:36:13 EDT CPT-95996 Urine Preg Test - In [place] 11:26:16 EDT CPT-59480 Urine Preg Test - In [place] 09:17:28 EDT CPT-38076 Urine Preg Test - In [place] 11:23:16 EDT CPT-29640 Urine Dip - In House 11:24:55 EDT CPT-73451 Urine Dip 14:36:42 EST CPT-27648 Urine Preg Test 14:32:42 EST
--- OUTSIDE RECORDS SUMMARY | 2017-04-04 15:51 | XMS REPORT | Clinical Summary ---
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 ASTHMA 493.90 Active FRACISCO Asthma, 06/18 [...] (RLS) MD MORBID OBESITY Active FRACISCO Morbid /04/18 EMMY obesity ROGERS PA BMI 50.0-59.9 Active [...] Date Date Instruction FAMOTIDINE TAKE ONE FAMOTIDINE 34051638 Active MEMO 20 MG ORAL TABLET BY 860 O TABLET MOUTH TWICE OLAREWARENETTA DAILY MD METFORMIN TAKE ONE METFORMIN HCL 89358066 Active MEMO HCL 1000 MG TABLET BY 705 O ORAL TABLET MOUTH TWICE OLAREWAJU DAILY , BUPROPION TAKE ONE BUPROPION HCL 25288142 Active FRACISCO HCL ER (XL) TABLET BY 04/16 905 EMMY 300 MG ORAL MOUTH IN THE ROGERS TABLET MORNING PA EXTENDED RELEASE 24 HOUR INVOKANA 100 TAKE ONE CANAGLIFLOZIN 66070327 Active MEMO MG ORAL TABLET BY 04/16 030 O TABLET MOUTH ONCE OLAREWAJU DAILY , VENTOLIN HFA 2 puffs every ALBUTEROL 02282802 Active FRACISCO 108 (90 4 - 6 hours 08/10 SULFATE 220 EMMY Base) as needed ROGERS MCG/ACT PA INHALATION AEROSOL SOLUTION LORATADINE 1 by mouth at LORATADINE 25841109 Active MEMO 10 MG ORAL bedtime 08/10 410 O TABLET MD MONICA FLUTICASONE 1 spray each FLUTICASONE 72856706 Active MEMO PROPIONATE nostril twice 08/10 PROPIONATE 099 O 50 MCG/ACT daily MONICA NASAL MD SUSPENSION BUPROPION 1 tab by BUPROPION HCL 62837975 Active MEMO HCL ER (XL) mouth once [...] (calc) Glomerular Filtration rate >60 mL/min >60 Belgian urea nitrogen/creatinine ratio, 13.7 ratio serum sodium, serum 138 mmol/L 452-346 2687/04/28 potassium, serum 4.5 mmol/L 3.5-5.1 chloride, serum [...] 11.6 ratio serum sodium, serum 142 mmol/L 541-100 6507/11/19 potassium, serum 2.9 mmol/L 3.5-5.1 chloride, serum [...] 30.8- 34.3 RBC platelet count 268 10*3/mm3 133-590 7116/11/19 red blood cell distribution width, size 41.9 [...] NO WHITE BLOOD CELLS Occupational Health: [place]: [employer] [employer] [place] - Urinalysis urine color yellow appearance, urine clear leukocyte esterase, urine, by dipstick negative nitrite, urine, semiquantitative negative urobilinogen, urine, semiquantitative (dipstick) negative blood in urine (hemoglobin) by dipstick negative ketones, urine, by test strip trace (5) bilirubin, urine negative glucose, urine, semiquantitative trace pH, urine, semiquantitative 5.0 specific gravity, urine 1.020 Encounters Code Encounter Date Provider Facility CPT-75692 Ofc Vst, Est Level IV [facility] Office 21:42:07 EDT MD MONICA CPT-07527 Ofc Vst, Est Level IV FRACISCO ROGERS [facility] 18:00:10 EDT CELE CPT-82839 Ofc Vst, Est Level IV [facility] Office 15:10:49 EDT MD MONICA CPT-92683 [facility] ED[facility] MD MONICA CPT-10566 Ofc Vst, Est Level III FRACISCO ROGERS [facility] 11:26:46 EDT PA CPT-06868 Ofc Vst, Est Level III FRACISCO ROGERS [facility] 12:10:18 EST PA CPT-60598 Ofc Vst, Est Level III MADDIE MURDOCK [facility] Office 11:26:16 EST CPT-09139 Ofc Vst, New Level II MICKEY MILNER [facility] 14:33:12 EST Procedures Code Procedure Name [...] 09:18:22 EDT CPT-OHPEDOT [facility] [place] 09:18:22 EDT CPT-16442 Influenza 3 yrs. & up 15:09:56 EDT CPT-26730 Venipuncture 22:14:25 EDT CPT-OHPEDOT DOT [place] 09:21:57 EST CPT-73863 Glucose - In House 14:36:14 EDT CPT-[facility]VIS [facility] [place] 14:36:14 EDT CPT-OHCOLOR Color [facility] [place] 14:36:13 EDT CPT-OHUA Urine Dip - [place] 14:36:13 EDT CPT-OHPEDOT DOT [place] 14:36:13 EDT CPT-60227 Urine Preg Test - In [place] 11:26:16 EDT CPT-71331 Urine Preg Test - In [place] 09:17:28 EDT CPT-81076 Urine Preg Test - In [place] 11:23:16 EDT CPT-71578 Urine Dip - In House 11:24:55 EDT CPT-57491 Urine Dip 14:36:42 EST CPT-89429 Urine Preg Test 14:32:42 EST
--- NOTE | 2017-04-04 15:52 | ED ---
Throat Pain/Nasal Congestion - HPI Summary HPI Summary: 37 yr old female with left ear pain. Onset three days ago of pain, but preceeded with 2 weeks of sinus pressure, post nasal drip, mild coughing. She has a history of prior OM and also smoking. Pain is 8/10. Pressure in left ear. No other complaints. - History of Current Complaint Chief Complaint: UCEar Time Seen by Provider: 04/04/17 15:34 - Allergies/Home Medications Allergies/Adverse Reactions: Allergies Allergy/AdvReac Type Severity Reaction Status Date / Time Adhesive Tape Allergy Rash Verified 04/04/17 15:20 Diphenhydramine Allergy Itching Verified 04/04/17 15:20 [From Benadryl] Erythromycin Allergy Hives Verified 04/04/17 15:20 adhesives Allergy Rash Uncoded 04/04/17 15:20 Home Medications: Home Medications Canagliflozin (NF) [Invokana (NF)] 100 mg PO DAILY 04/04/17 [History Confirmed 04/04/17] Escitalopram Oxalate [Lexapro 10 mg] 10 mg PO DAILY 04/04/17 [History Confirmed 04/04/17] PMH/Surg Hx/FS Hx/Imm Hx Endocrine/Hematology History: Reports: Hx Diabetes Cardiovascular History: Denies: Hx Hypertension, Hx Pacemaker/ICD Respiratory History: Reports: Hx Asthma History: Denies: Hx Dialysis, Hx Renal Disease Sensory History: Denies: Hx Hearing Aid EENT History: Reports: Other - ear pain Psychiatric History: Denies: Hx Panic Disorder - Surgical History Surgery Procedure, Year, and Place: R carpal tunnel. RIGHT BREST LUMP EXCISION- FEB 2017 Infectious Disease History: Yes Infectious Disease History: Reports: Hx Shingles Denies: Traveled Outside the [place] in Last 30 Days - Family History Known Family History: Positive: Cardiac Disease, Hypertension, Diabetes - Social History Alcohol Use: None Substance Use Type: Reports: None Smoking Status (MU): Light Every Day Tobacco Smoker Type: Cigarettes Amount Used/How Often: 6 CIGS A DAY Length of Time of Smoking/Using Tobacco: 21 Years Have You Smoked in the Last Year: Yes Review of Systems Constitutional: Negative Positive: Ear Ache, Nasal Discharge All Other Systems Reviewed And Are Negative: Yes Physical Exam Triage Information Reviewed: Yes Vital Signs On Initial Exam: Initial Vitals Temp Pulse Resp BP Pulse Ox 97.6 F 93 20 171/86 99 12/20/17 15:23 04/04/17 15:23 04/04/17 15:23 04/04/17 15:23 04/04/17 15:23 Vital Signs Reviewed: Yes Appearance: Positive: Well-Appearing, No Pain Distress, Obese Skin: Positive: Warm, Skin Color Reflects Adequate Perfusion Head/Face: Positive: Normal Head/Face Inspection Eyes: Positive: EOMI ENT: Positive: Pharynx normal, TM bulging - left, TM red - left, Sinus tenderness - bilateral maxillary. Negative: Nasal drainage Respiratory/Lung Sounds: Positive: Clear to Auscultation, Breath Sounds Present Cardiovascular: Positive: RRR. Negative: Murmur Abdomen Description: Positive: Nontender Musculoskeletal: Positive: Strength/ROM Intact Neurological: Positive: Sensory/Motor Intact, Alert, Oriented to Person Place, Time, CN Intact II-III, Normal Gait, Speech Normal Psychiatric: Positive: Normal - [place] Coma Scale Best Eye Response: 4 - Spontaneous Best Motor Response: 6 - Obeys Commands Best Verbal Response: 5 - Oriented Diagnostics - Vital Signs Vital Signs Temp Pulse Resp BP Pulse Ox 04/04/17 15:23 97.6 F 93 20 171/86 99 - Laboratory Lab Statement: Any lab studies that have been ordered have been reviewed, and results considered in the medical decision making process. EENT Course/Dx - Course Course Of Treatment: 37 yr old female with left otitis media, and sinus infection. Will Rx with Augmentin. - Diagnoses Provider Diagnoses: Sinusitis, Otitis media Discharge - Discharge Plan Condition: Good Disposition: HOME Prescriptions: Amoxicillin/Clavulanate TAB* [Augmentin TAB 875*] 875 mg PO BID #20 tab Ibuprofen TAB* [Motrin TAB* 600 MG] 600 mg PO Q6H PRN #14 tab PRN Reason: Pain Patient Education Materials: Otitis Media (ED), Hypertension (ED) Forms: *Work Release Referrals: Magdalena Brown MD [Primary Care Provider] - 2 Days Additional Instructions: follow up with your primary doctor for a blood pressure check.
--- OUTSIDE RECORDS SUMMARY | 2017-04-04 15:52 | XMS REPORT | Clinical Summary ---
:1980 Author Organization [facility] Address [address] [place] [address] Phone Allergies, Adverse Reactions, Alerts Allergy Name Reaction Description Start Date Severity Status Provider ERYTHROMYCIN BASE Critical Active MICKEY OAKLEY Conditions or Problems Problem Name Problem Onset Status Entry Provider Comment Standard Annotate Code Date Date Description HYPERTENSION 401.9 Active MADDIE Unspecified /04/29 STORMANN essential [employer] hypertension ASTHMA 493.90 Active FRACISCO Asthma, 06/18 [...] Date Date Instruction FAMOTIDINE TAKE ONE FAMOTIDINE 82998017 Active MEMO 20 MG ORAL TABLET BY 860 O TABLET MOUTH TWICE OLAREWARENETTA DAILY MD METFORMIN TAKE ONE METFORMIN HCL 62977615 Active MEMO HCL 1000 MG TABLET BY 705 O ORAL TABLET MOUTH TWICE OLAREWAJU DAILY , BUPROPION TAKE ONE BUPROPION HCL 25621891 Active FRACISCO HCL ER (XL) TABLET BY 04/16 905 EMMY 300 MG ORAL MOUTH IN THE ROGERS TABLET MORNING PA EXTENDED RELEASE 24 HOUR INVOKANA 100 TAKE ONE CANAGLIFLOZIN 11908343 Active MEMO MG ORAL TABLET BY 04/16 030 O TABLET MOUTH ONCE OLAREWAJU DAILY , VENTOLIN HFA 2 puffs every ALBUTEROL 84092102 Active FRACISCO 108 (90 4 - 6 hours 08/10 SULFATE 220 EMMY Base) as needed ROGERS MCG/ACT PA INHALATION AEROSOL SOLUTION LORATADINE 1 by mouth at LORATADINE 90467200 Active MEMO 10 MG ORAL bedtime 08/10 410 O TABLET MD MONICA FLUTICASONE 1 spray each FLUTICASONE 05399184 Active MEMO PROPIONATE nostril twice 08/10 PROPIONATE 099 O 50 MCG/ACT daily MONICA NASAL MD SUSPENSION BUPROPION 1 tab by BUPROPION HCL 60921393 Active MEMO HCL ER (XL) mouth once [...] (calc) Glomerular Filtration rate >60 mL/min >60 [place] urea nitrogen/creatinine ratio, 13.7 ratio serum sodium, serum 138 mmol/L 774-250 2133/04/28 potassium, serum 4.5 mmol/L 3.5-5.1 chloride, serum [...] 11.6 ratio serum sodium, serum 142 mmol/L 162-186 1162/11/19 potassium, serum 2.9 mmol/L 3.5-5.1 chloride, serum [...] 30.8- 34.3 RBC platelet count 268 10*3/mm3 904-841 4061/11/19 red blood cell distribution width, size 41.9 [...] NO WHITE BLOOD CELLS Occupational Health: [place]: [employer] [employer] [place] - Urinalysis urine color yellow appearance, urine clear leukocyte esterase, urine, by dipstick negative nitrite, urine, semiquantitative negative urobilinogen, urine, semiquantitative (dipstick) negative blood in urine (hemoglobin) by dipstick negative ketones, urine, by test strip trace (5) bilirubin, urine negative glucose, urine, semiquantitative trace pH, urine, semiquantitative 5.0 specific gravity, urine 1.020 Encounters Code Encounter Date Provider Facility CPT-71231 Ofc Vst, Est Level IV [facility] Office 21:42:07 EDT MD MONICA CPT-45860 Ofc Vst, Est Level IV FRACISCO ROGERS [facility] 18:00:10 EDT CELE CPT-59165 Ofc Vst, Est Level IV [facility] Office 15:10:49 EDT MD MONICA CPT-49400 [facility] Vst[facility] EDT MD MONICA CPT-17067 Ofc Vst, Est Level III FRACISCO ROGERS [facility] 11:26:46 EDT PA CPT-34026 Ofc Vst, Est Level III FRACISCO ROGERS [facility] 12:10:18 EST PA CPT-45461 Ofc Vst, Est Level III MADDIE MURDOCK [facility] Office 11:26:16 EST CPT-99445 Ofc Vst, New Level II MICKEY MILNER PA [facility] 14:33:12 EST Procedures Code Procedure Name [...] 09:18:22 EDT [facility] [facility] [place] 09:18:22 EDT CPT-43877 Influenza 3 yrs. & up 15:09:56 EDT CPT-23131 Venipuncture 22:14:25 EDT CPT-[place] 09:21:57 EST CPT-26128 Glucose - In House 14:36:14 EDT CPT-OHVIS [facility] [place] 14:36:14 EDT CPT-OHCOLOR [facility] [place] 14:36:13 EDT CPT-OHUA Urine Dip - [place] 14:36:13 EDT CPT-[place] DOT [place] 14:36:13 EDT CPT-84497 Urine Preg Test - In [place] 11:26:16 EDT CPT-03557 Urine Preg Test - In [place] 09:17:28 EDT CPT-88273 Urine Preg Test - In [place] 11:23:16 EDT CPT-35346 Urine Dip - In House 11:24:55 EDT CPT-10377 Urine Dip 14:36:42 EST CPT-09426 Urine Preg Test 14:32:42 EST
--- OUTSIDE RECORDS SUMMARY | 2017-04-04 15:52 | XMS REPORT | Clinical Summary ---
:1980 Author Organization [facility] Address [address] [place] [address] Phone Allergies, Adverse Reactions, Alerts Allergy Name Reaction Description Start Date Severity Status Provider ERYTHROMYCIN BASE Critical Active MICKEY OAKLEY Conditions or Problems Problem Name Problem Onset Status Entry Provider Comment Standard Annotate Code Date Date Description HYPERTENSION 401.9 Active MADIDE Unspecified /04/29 STORMANN essential CPHT hypertension ASTHMA 493.90 Active FRACISCO Asthma, 06/18 [...] Date Date Instruction FAMOTIDINE TAKE ONE FAMOTIDINE 44012588 Active MEMO 20 MG ORAL TABLET BY 860 O TABLET MOUTH TWICE OLAREWARENETTA DAILY MD METFORMIN TAKE ONE METFORMIN HCL 60458644 Active MEMO HCL 1000 MG TABLET BY 705 O ORAL TABLET MOUTH TWICE OLAREWAJU DAILY , BUPROPION TAKE ONE BUPROPION HCL 95940947 Active FRACISCO HCL ER (XL) TABLET BY 04/16 905 EMMY 300 MG ORAL MOUTH IN THE ROGERS TABLET MORNING PA EXTENDED RELEASE 24 HOUR INV[place] 100 TAKE ONE CANAGLIFLOZIN 56581457 Active MEMO MG ORAL TABLET BY 04/16 030 O TABLET MOUTH ONCE OLAREWAJU DAILY , VENTOLIN HFA 2 puffs every ALBUTEROL 74432661 Active FRACISCO 108 (90 4 - 6 hours 08/10 SULFATE 220 EMMY Base) as needed ROGERS MCG/ACT PA INHALATION AEROSOL SOLUTION LORATADINE 1 by mouth at LORATADINE 98318582 Active MEMO 10 MG ORAL bedtime 08/10 410 O TABLET MD MONICA FLUTICASONE 1 spray each FLUTICASONE 32856287 Active MEMO PROPIONATE nostril twice 08/10 PROPIONATE 099 O 50 MCG/ACT daily MONICA NASAL MD SUSPENSION BUPROPION 1 tab by BUPROPION HCL 21546195 Active MEMO HCL ER (XL) mouth once [...] (calc) Glomerular Filtration rate >60 mL/min >60 [place] urea nitrogen/creatinine ratio, 13.7 ratio serum sodium, serum 138 mmol/L 374-702 0634/04/28 potassium, serum 4.5 mmol/L 3.5-5.1 chloride, serum [...] 11.6 ratio serum sodium, serum 142 mmol/L 300-799 9662/11/19 potassium, serum 2.9 mmol/L 3.5-5.1 chloride, serum [...] 30.8- 34.3 RBC platelet count 268 10*3/mm3 146-700 7418/11/19 red blood cell distribution width, size 41.9 [...] NO WHITE BLOOD CELLS Occupational Health: [place]: [employer] [employer] [place] - Urinalysis urine color yellow appearance, urine clear leukocyte esterase, urine, by dipstick negative nitrite, urine, semiquantitative negative urobilinogen, urine, semiquantitative (dipstick) negative blood in urine (hemoglobin) by dipstick negative ketones, urine, by test strip trace (5) bilirubin, urine negative glucose, urine, semiquantitative trace pH, urine, semiquantitative 5.0 specific gravity, urine 1.020 Encounters Code Encounter Date Provider Facility CPT-35880 Ofc Vst, Est Level IV [facility] Office 21:42:07 EDT MD MONICA CPT-96288 Ofc Vst, Est Level IV FRACISCO ROGERS [facility] 18:00:10 EDT CELE CPT-98160 Ofc Vst, Est Level IV [facility] Office 15:10:49 EDT MD MONICA CPT-66612 [facility]24 EDT MD MONICA CPT-10424 Ofc Vst, Est Level III FRACISCO ROGERS [facility] 11:26:46 EDT PA CPT-99865 Ofc Vst, Est Level III FRACISCO ROGERS [facility] 12:10:18 EST PA CPT-27513 Ofc Vst, Est Level III MADDIE MURDOCK [facility] Office 11:26:16 EST CPT-37003 Ofc Vst, New Level II MICKEY MILNER PA [facility] 14:33:12 EST Procedures Code Procedure Name [...] 09:18:22 EDT CPT-[place] [facility] [place] 09:18:22 EDT CPT-20386 Influenza 3 yrs. & up 15:09:56 EDT CPT-41459 Venipuncture 22:14:25 EDT CPT-[place] 09:21:57 EST CPT-54644 Glucose - In House 14:36:14 EDT CPT-[facility] [place] 14:36:14 EDT CPT-OHCOLOR [facility] [place] 14:36:13 EDT CPT-OHUA Urine Dip - [place] 14:36:13 EDT CPT-[place] DOT [place] 14:36:13 EDT CPT-15378 Urine Preg Test - In [place] 11:26:16 EDT CPT-03051 Urine Preg Test - In [place] 09:17:28 EDT CPT-91336 Urine Preg Test - In [place] 11:23:16 EDT CPT-75096 Urine Dip - In House 11:24:55 EDT CPT-92799 Urine Dip 14:36:42 EST CPT-95125 Urine Preg Test 14:32:42 EST
[2017-04-04] MEDS ORDERED: Ibuprofen TAB* 600 MG PO ONE (15:54)
== END 2017-04-04 16:00 | disposition home or self-care (01) ==
LOC: UCCORT 15:09
DX: H66.92 Otitis media, unspecified, left ear (principal); J32.9 Chronic sinusitis, unspecified; F17.210 Nicotine dependence, cigarettes, uncomplicated; J45.909 Unspecified asthma, uncomplicated
CPT/HCPCS: 99212; A9270-GY; G0463

== ENCOUNTER 2017-05-15 18:35 | Emergency (ER) | payer OTHER ==
[2017-05-15 19:41] VITALS: BP 158/92
--- NOTE | 2017-05-15 21:00 | UC ---
Respiratory Complaint HPI - HPI Summary HPI Summary: 37 y/o female presents to the urgent care c/o nasal congestion, sob, cough and headache for past month. States possible pregnacy? - History of Current Complaint Chief Complaint: UCGeneralIllness Stated Complaint: ST,MAYO,CHEST CONGESTION Time Seen by Provider: 05/15/17 20:58 Hx Obtained From: Patient Hx Last Menstrual Period: 03/15/17 Pain Intensity: 7 - Allergies/Home Medications Allergies/Adverse Reactions: Allergies Allergy/AdvReac Type Severity Reaction Status Date / Time Adhesive Tape Allergy Rash Verified 05/15/17 19:42 MS Diphenhydramine Allergy Itching Verified 05/15/17 19:42 [From Benadryl] MS Erythromycin Allergy Hives Verified 05/15/17 19:42 [Erythromycin] adhesives Allergy Rash Uncoded 05/15/17 19:42 Home Medications: Home Medications Famotidine TAB* [Pepcid 20 MG TAB*] 10 mg PO BID 05/15/17 [History Confirmed ] PMH/Surg Hx/FS Hx/Imm Hx - Surgical History Surgical History: Yes Surgery Procedure, Year, and Place: R carpal tunnel. RIGHT BREST LUMP EXCISION- FEB 2017 - Family History Known Family History: Positive: Cardiac Disease, Hypertension, Diabetes - Social History Alcohol Use: None Substance Use Type: None Smoking Status (MU): Light Every Day Tobacco Smoker Type: Cigarettes Amount Used/How Often: 6 CIGS A DAY Length of Time of Smoking/Using Tobacco: 21 Years Have You Smoked in the Last Year: Yes When Did the Patient Quit Smoking/Using Tobacco: 2007 Household Exposure Type: Cigarettes - Immunization History Most Recent Influenza Vaccination: EARLY MAR 2017 Physical Exam Vital Signs: Initial Vital Signs Temp 98.7 F 05/15/17 19:30 Pulse 82 05/15/17 19:30 Resp 17 05/15/17 19:30 BP 158/92 05/15/17 19:30 Pulse Ox 100 05/15/17 19:30 UC Diagnostic Evaluation - Laboratory O2 Sat by Pulse Oximetry: 100 Respiratory Course/Dx - Differential Dx/Diagnosis Differential Diagnosis/HQI/PQRI: Bronchitis, Influenza, Laryngitis, Lower Resp Infection, Sinusitis Provider Diagnoses: 1- Acute bacterial sinusitis. 2- Elevated BP w/o Hx of HTN. 3-r/o Discharge - Discharge Plan Condition: Stable Disposition: HOME Prescriptions: DOXYcycline CAP(*) [DOXYcycline 100MG CAP(*)] 100 mg PO BID #19 cap Fluticasone NASAL SPRAY 50MCG* [Flonase NASAL SPRAY 50MCG*] 2 spray BOTH NARES DAILY #1 btl Patient Education Materials: Sinusitis (ED), Low-Sodium Diet (ED) Forms: *Work Release Referrals: CHANTELL Cooney [Primary Care Provider] - 1 Week Tesfaye Brewer MD [Medical Doctor] - 1 Week Additional Instructions: 1- Please increase fluid intake and rest. take full course of antibiotic to avoid resistance 2-Use Flonase as directed to help drain fluid. Also buy saline drops to clear sinuses 3-F/u with ENT Dr Brewer or PCP in 1 week if symptoms do not improve for further management and treatment 4-Your BP is elevated today. please decrease salt in your diet, monitor BP and if it continues to be elevated please f/u with your PCP for further management
[2017-05-15] MEDS ORDERED: DOXYcycline CAP(*) 100 MG PO ONE (21:17)
== END 2017-05-15 21:27 | disposition home or self-care (01) ==
LOC: UCCORT 18:35
DX: J01.90 Acute sinusitis, unspecified (principal); R03.0 Elevated blood-pressure reading, without diagnosis of hypertension; Z32.02 Encounter for pregnancy test, result negative; Z88.8 Allergy status to other drugs, medicaments and biological substances; Z91.048 Other nonmedicinal substance allergy status; Z72.0 Tobacco use
CPT/HCPCS: 84702; 99212; A9270-GY; G0463

== ENCOUNTER 2017-06-04 17:14 | Emergency (ER) | payer OTHER ==
[2017-06-04 18:12] VITALS: BP 149/85
--- NOTE | 2017-06-04 18:39 | RAD ---
INDICATION: Right wrist pain COMPARISON: None TECHNIQUE: AP, lateral, and oblique views were obtained. FINDINGS: The bony structures, joint spaces, and soft tissues are normal for age. IMPRESSION: NEGATIVE EXAMINATION.
--- NOTE | 2017-06-04 18:40 | RAD ---
INDICATION: Right hand pain COMPARISON: None TECHNIQUE: AP, lateral, and oblique views were obtained. FINDINGS: There are no acute bony findings. There is an old fifth metacarpal fracture. The joint spaces are intact. There is mild soft tissue swelling over the dorsum of the hand. IMPRESSION: NO ACUTE FRACTURE.
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
== END 2017-06-04 18:47 | disposition home or self-care (01) ==
LOC: UCCORT 17:14
DX: S63.501A Unspecified sprain of right wrist, initial encounter (principal); S63.91XA Sprain of unspecified part of right wrist and hand, initial encounter; W50.0XXA Accidental hit or strike by another person, initial encounter; Y93.9 Activity, unspecified; Y92.9 Unspecified place or not applicable; I10 Essential (primary) hypertension; E11.9 Type 2 diabetes mellitus without complications; Z87.891 Personal history of nicotine dependence
CPT/HCPCS: 99212; G0463